=== PATIENT | male | born 1980 | race Two or more races ===

== ENCOUNTER → 2025-02-25 | Outpatient (CLI) | payer OTHER, SELFPAY ==
--- NOTE | 2025-02-25 | XR_ITS ---
Examination: Foot, right, 3 views Technique: AP, oblique, lateral views foot, 3 views Date and time of exam: February 25, 2025, 12:46 p.m. INDICATIONS: Right foot pain 6 months. FINDINGS: Mild narrowing first metatarsophalangeal joint No fracture or dislocation. No erosive arthritis IMPRESSION: Mild narrowing first metatarsophalangeal joint
== END | disposition home or self-care (01) ==
PROVIDERS: PCP Family Medicine; Referring Provider Family Medicine; Visit Provider Family Medicine
DX: M25.871 Other specified joint disorders, right ankle and foot (principal)
CPT/HCPCS: 73630